=== PATIENT | female | born 1995 | race Caucasian/White ===

== ENCOUNTER 2021-03-29 20:16 | Emergency (ER) | payer OTHER ==
[~2021-03-29] VITALS: Ht 175.3 cm; Wt 65.8 kg
--- NOTE | 2021-03-29 22:04 | NUR ---
Patient discharged to home in stable condition. Written and verbal after care instructions given. Patient verbalizes understanding of instructions. Stressed follow up or return to ER for worsening s/s. Patient out of ER with steady gait, no acutes signs of distress, VSS, all belongings taken.
[2021-03-29 22:05] VITALS: BP 108/62
== END 2021-03-29 22:06 | disposition home or self-care (01) ==
LOC: ER 20:19
DX: R51.9 Headache, unspecified (principal); M54.50 Low back pain, unspecified
CPT/HCPCS: A4663